=== PATIENT | female | born 2005 | race African-American/Black ===

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

== ENCOUNTER 2023-01-19 00:14 | Emergency (ER) | payer OTHER, SELFPAY ==
[2023-01-19 00:41] VITALS: BP 138/73; PULSE 70; RESP 15; TEMP 36.6; O2SAT 100
== END 2023-01-19 02:37 | disposition left against medical advice (07) ==
DX: Z53.21 Procedure and treatment not carried out due to patient leaving prior to being seen by health care provider (principal)
CPT/HCPCS: 99199

== ENCOUNTER 2024-12-14 10:01 | Emergency (ER) | payer OTHER, SELFPAY ==
--- NOTE | ~2024-12-14 | XR_ITS ---
Examination: XR chest 2V Clinical History: SOB congestion fatigue lack of sleep Comparison: 06/11/2022 Technique: PA and Lateral Findings: Cardiomediastinal silhouette normal size and configuration. Lungs clear. No acute bony abnormality. IMPRESSION: 1. No acute cardiopulmonary findings. Reviewed, dictated and finalized at location R.
[2024-12-14 10:08] VITALS: BP 143/94; PULSE 103; RESP 18; TEMP 36.2; O2SAT 99
--- OUTSIDE RECORDS SUMMARY | 2024-12-14 11:00 | XMS_ITS | Clinical Summary ---
Author Organization [facility] Address [address] [place] [address] Phone Care Team Providers Care Site Manager Name Role Phone Unavailable Primary Care Provider Unavailabl e Allergies Active Allergy Reactions Criticality Noted Date Comments Bee Sting Kit 01/13/2018 Medications No known medications Active Problems No known active problems Immunizations Name Administration Dates Next Due DTaP Vaccine(Daptacel)<7yo 10/31/2008,,01/29/2004,11/26,2003 HPV Vaccine 9-valent (Gardasil 9) 12/27/2020, Hep B Vaccine, Pediatric (Recombivax/Engerix-B Pediatric)tric) 04/30/2004,2003,2003 HepA Vaccine,Pediatric 2-Dose(Havrix/Vaqta) 10/31/2008,11/08/2006 Hib 12/03/2004,2003,2003 MMR Vaccine(Priorix/M-M-R II) 10/31/2008, 005 Meningococcal B 2-dose serie s Vaccine(Bexsero) 05/13/2020 Meningococcal Conjugate Vacc ine 4-valent(Menactra) 05/13/2020,01/13/2018 Polio IPV Vaccine (IPOL) 10/31/2008,11/20,2003,09/06 Tdap Vaccine(Adacel/Boostrix)=>7yo 07/18/2015 Varicella Vaccine(Varivax) 10/31/2008,12/03/2004 Family History Medical History Relation Comments Diabetes Father High blood pressure Mother Relation Status Comments Father Mother Social History Tobacco Use Types Packs/Day Years Used Date Smoking Tobacco: Never Smokeless Tobacco: Never Alcohol Use Standard Drinks/Week Comments Never 0 (1 standard drink = 0.6 oz pur e alcohol) AUDIT-C Answer Date Recorded Q1: How often do you have a drink containing alc ohol? Never 12/27/2020 Average Number of Drinks Not on file 021 Frequency of Binge Drinking Not on file 10/2020 Overall Financial Resource Strain (CARDIA) Answe r Date Recorded How hard is it for you to pa y for the very basics like food, housing, medical care, and heating? Not very hard 12/27/2020 Housing Stability Vital Sign Answer Liban e Recorded In the last 12 months, was t here a time when you were not able to pay the mortgage or rent on time? No 12/27/2020 In the last 12 months, how many places have you lived? 1 12/27/2020 In the last 12 months, was t here a time when you did not have a steady place to sleep or slept in a m[facility]p (including now)? No 12/27/2020 Intimate Partner Violence Answer Date R ecorded Feels Safe at Home Not on file 05/14/2021 Food Insecurity Answer Date Recorded Within the past 30 days, I w orried whether my food would run out before I got money to buy more. / En los ltimos 30 d as, me preocup que la comida se pod a acabar antes de tener dinero para comprar m s. Never true / Nunca 12/27/2020 Within the past 30 days, the food that I bought just didn't last, and I didn't have money to get more. / En los ltimos 30 d as, La comida que compr no rindi lo suficiente, y no ten a dinero para comprar m s. Never true / Nunca 12/27/2020 Comments Unknown Sex and Gender Information Value Date Recorded Sex Assigned at Not on file Legal Sex Female 9:22 AM CDT Gender Identity Female 11/16/2018 2:43 PM CDT Sexual Orientation Straight 11/16/2018 2: 43 PM CDT Last Filed Vital Signs Vital Sign Reading Time Taken Comments Blood Pressure 125/73 12/27/2020 9:46 AM CDT Pulse 70 12/27/2020 9:46 AM CDT Temperature 36.7 C (98 F) 05/13/2020 3:36 PM SENIOUR INSIGHT MANAGER Respiratory Rate 24 12/27/2020 9:46 AM CDT Oxygen Saturation 99% 12/27/2020 9:46 AM CDT Inhaled Oxygen Concentration - - Weight 122.5 kg (270 lb) 12/27/2020 9:46 AM CDT Height 169.9 cm (5' 6.89) 12/27/2020 9:46 AM CD T Body Mass Index 42.43 12/27/2020 9:46 AM CDT Plan of Treatment Health Maintenance Due Date Last Done Comments HPV Vaccine (3 - 3-dose series) 03/21/2021 12/27/2020, 05/13/2020 Chlamydia & Gonorrhea Screening: Complete with Pap 05/13/2021 05/13/2020, 01/13/2018 HIV Screening 05/13/2021 05/13/2020 Annual Preventive Visit 12/27/2021 12/27/2020, 05/13 Cervical Cancer Screening (3 year): 21yo-29yo 06/09/2024 COVID-19 Vaccine (2024- season) 2024 03/16/2021 Influenza Vaccine (#1) 2024 Tdap/DTaP/Td Vaccine (7 - Td or Tdap) 07/17/2025 07/18/2015, 10/31/2008, 12/03/2004, Additional history exists RSV 60+ and Currently (1 - 1-dose 75+ series) 06/09/2078 Meningococcal Vaccine Completed 05/13/2020, 018 Pneumococcal Immunization 0-5 & High-Risk Patients 6-49 Aged Out No longer eligible based on patient's age to complete this topic Procedures Procedure Name Priority Date/Time Associated Diagnosis Comments HIV 1/O/2 AG/AB W CASCADE RFLX Routine 05/13/2020 3:27 PM SENIOUR INSIGHT MANAGER Screening for HIV (human immunodeficiency virus) CT, NG, TRICH VAG BY VADIM Routine 05/13/2020 3:27 PM SENIOUR INSIGHT MANAGER Screen for sexually transmitted diseases from Last 3 Months or Most Recently Relevant to Health Maintenance Results * HIV 1/O/2 AG/AB W CASCADE RFLX (05/13/2020 3:27 PM SENIOUR INSIGHT MANAGER) HIV SCREEN 4TH GENERATION Non Reactive Non Reactive [facility] 2 Blood specimen (specimen) BLOOD SPECIMEN / Unknown 05/13/2020 3:27 PM SENIOUR INSIGHT MANAGER 05/12/2020 11:00 PM SENIOUR INSIGHT MANAGER Narrative [facility] - 05/15/2020 1:06 AM SENIOUR INSIGHT MANAGER Performed at: [facility] [id number] Fundraising Coordinator: Tim Baer PhD, Phone: [phone] Sylvain Rodrigues MD LAB BLOOD ORDERABLES Final Res ult Performing Organization Address [facility]/ZIP Co de Phone Number [facility] 2 * Chlamydia, GC, Trichomonas ([id number]) (05/13/2020 3:27 PM SENIOUR INSIGHT MANAGER) Chlamydia by VADIM Negative Negative [facility] 1 Gonococcus by VADIM Negative Negative [facility] 1 Trich vag by VADIM Negative Negative [facility] 1 Specimen of unknown material (specimen) 05/13/2020 3:27 PM SENIOUR INSIGHT MANAGER 05/12/2020 11:00 PM SENIOUR INSIGHT MANAGER Narrative [facility] - 05/15/2020 1:06 AM SENIOUR INSIGHT MANAGER Performed at: [facility] [id number] Fundraising Coordinator: Penelope Musa MD, Phone: [phone] Sylvain Rodrigues MD MICROBIOLOGY - GENERAL ORDERAB LES Final Result Performing Organization Address City/[facility]/ZIP Co de Phone Number [facility] 1 from Last 3 Months or Most Recently Relevant to Health Maintenance
--- OUTSIDE RECORDS SUMMARY | 2024-12-14 11:00 | XMS_ITS | Clinical Summary ---
Author Organization [facility] [address] Address [facility] [place] [address] Care Team Providers Care Insurance Biller Name Role Phone No, Physician Primary Care Provider [phone] Allergies Active Allergy Reactions Criticality Noted Date Comments Bee Sting Kit Unknown 01/13/2018 Medications norgestimate-eth inyl estradioL (ORTHO-CYCLEN) 0.25-35 mg-mcg per tablet Take 1 tablet by mouth daily Active Active Problems No known active problems Social History Tobacco Use Types Packs/Day Years Used Date Smoking Tobacco: Never Assessed Comments Unknown Sex and Gender Information Value Date Recorded Sex Assigned at Not on file Legal Sex Female 11:03 AM CDT Gender Identity Not on file Sexual Orientation Not on file Obstetrics History Last Filed Vital Signs Vital Sign Reading Time Taken Comments Blood Pressure 134/84 05/26/2024 9:11 AM TECH INTERN Pulse 71 05/26/2024 9:11 AM TECH INTERN Temperature 36.7 C (98 F) 05/11/2024 2:59 PM TECH INTERN Respiratory Rate 18 05/11/2024 2:59 PM TECH INTERN Oxygen Saturation 99% 05/11/2024 2:59 PM TECH INTERN Inhaled Oxygen Concentration - - Weight 130.6 kg (288 lb) 05/26/2024 9:11 AM TECH INTERN Height 172.7 cm (5' 8) 05/26/2024 9:11 AM TECH INTERN Body Mass Index 43.79 05/26/2024 9:11 AM TECH INTERN Plan of Treatment Health Maintenance Due Date Last Done Comments Cervical Cancer Screening 2003 Depression Screening 2003 Hepatitis C Screening 2003 Meningococcal B Vaccine (2 of 2 - Bexsero SCDM 2-dose series) 11/10/2020 05/13/2020 HPV Vaccines (3 - 3-dose series) 03/21/2021 12/27/2020, 05/13/2020 Regular Well Visit/Exam 18-64 06/09/2021 Covid-19 Vaccine (3 - 2024- season) 2024 04/06/2021, 03/16/2021 Influenza Vaccine (#1) 2024 DTaP/Tdap/Td Vaccine (7 - Td or Tdap) 07/17/2025 07/18/2015, 10/31/2008, 12/03/2004, Additional history exists Hepatitis B Screening Completed 04/30/2004 , 2003, 2003 Varicella Vaccines Completed 10/31/2008, 12/03/2004 Meningococcal Vaccine Completed 05/13/2020, 018 Pneumococcal vaccine <65 Aged Out No longer eligible based on patient's age to complete this topic Insurance [employer] [facility] Care Teams Insurance Biller Relationship Specialty Start Date End Date No, Physician PCP - General 05/18/24
--- NOTE | 2024-12-14 11:20 | ED_ITS ---
HPI - General Adult General Chief complaint: Upper Respiratory Infection Stated complaint: UPPER RESP Time Seen by Provider: 12/14/24 10:55 History of Present Illness HPI narrative: 19-year-old female presents to the emergency department for evaluation for sore throat cough congestion is been ongoing for the past 2 days. Patient reports she did have similar symptoms a few years ago. At that time patient was diagnosed with a viral pharyngitis. Patient denies any sick contacts Related Data Allergies Allergy/AdvReac Type Severity Reaction Status Date / Time No Known Allergies Allergy Verified 12/14/24 10:01 Review of Systems Review of Systems: All systems reviewed & are unremarkable except as noted in HPI and below Exam Narrative: APPEARANCE: Uncomfortable appearing HEAD: normocephalic, atraumatic. EYES: PERRLA/EOMI, conjunctivae clear. NOSE: Nasal congestion EARS:TMS clear with good light reflex. THROAT: Pharynx clear, no exudate. NECK: Supple. No adenopathy, no masses. RESPIRATORY: Airway patent, respirations nonlabored. Clear to auscultation bilaterally, no rales, rhonchi, wheezing. CARDIOVASCULAR: Regular rate and rhythm without murmurs rubs or gallops. ABDOMINAL: Soft, nontender, nondistended, normal bowel sounds MUSCULOSKELETAL: Moves all extremities. Strength/ROM intact, No edema, No calf tenderness. NEURO: Alert. Cranial nerves II through XII intact. Good gait. Good coordination SKIN: Warm, dry. Normal Color Course Vital Signs Vital signs: Vital Signs Temperature 97.1 F L 12/14/24 10:08 Pulse Rate 103 H 12/14/24 10:08 Respiratory Rate 18 12/14/24 10:08 Blood Pressure 143/94 H 12/14/24 10:08 Pulse Oximetry 99 12/14/24 10:08 Oxygen Delivery Room Air 12/14/24 10:08 Temperature 98.8 F 12/14/24 12:35 Pulse Rate 93 12/14/24 12:35 Respiratory Rate 18 12/14/24 12:35 Blood Pressure 136/84 12/14/24 12:35 Pulse Oximetry 99 12/14/24 12:35 Oxygen Delivery Room Air 12/14/24 10:08 Medical Decision Making [facility] Narrative Medical decision making narrative: 19-year-old female presents emergency department for evaluation for sore throat. Patient was negative for influenza RSV and for COVID. Strep was negative. Your test was negative. Chest x-ray shows no acute cardiopulmonary abnormality. Patient's symptoms are consistent with a viral syndrome. Patient was advised to do symptomatic treatment. All questions concerns were addressed. Differential Diagnosis Differential Diagnosis: Pneumonia, COVID, RSV , influenza, strep throat, viral syndrome Vital Signs Vital Signs: Vital Signs Temperature 97.1 F L 12/14/24 10:08 Pulse Rate 103 H 12/14/24 10:08 Respiratory Rate 18 12/14/24 10:08 Blood Pressure 143/94 H 12/14/24 10:08 Pulse Oximetry 99 12/14/24 10:08 Oxygen Delivery Room Air 12/14/24 10:08 Temperature 98.8 F 12/14/24 12:35 Pulse Rate 93 12/14/24 12:35 Respiratory Rate 18 12/14/24 12:35 Blood Pressure 136/84 12/14/24 12:35 Pulse Oximetry 99 12/14/24 12:35 Oxygen Delivery Room Air 12/14/24 10:08 Lab Data Lab results reviewed: Yes I reviewed the patient's lab results. Labs: Lab Results 12/14/24 12/14/24 Range/Units 11:12 11:40 POC Urine HCG, Qual Negative (Negative) Influenza A (RT-PCR) Negative (Negative) Influenza B (RT-PCR) Negative (Negative) RSV (RT-PCR) Negative (Negative) SARS-CoV-2 RNA (RT-PCR) Negative (Negative) Group A Strep (PCR) Not detected (Negative) Imaging Data My impression: X-ray: No acute cardiopulmonary abnormality Radiologist's impression: Impressions Chest X-Ray 12/14/24 11:33 IMPRESSION: 1. No acute cardiopulmonary findings. Discharge Plan Discharge Clinical Impression: Acute sore throat, Acute viral syndrome Patient Disposition: Home Condition: Stable Instructions: Antibiotic Form, Viral Syndrome (ED) Additional Instructions: Tylenol and ibuprofen for pain control. Drink plenty of fluids. Have close follow-up with your primary care physician. If you have any worsening symptoms then please call or return to the emergency department. Patient Language: Moroccan Prescriptions: No Action methylprednisolone [Medrol (Joaquin)] 4 mg tablets,dose pack See Rx Instructions .ROUTE .COMPLEX Qty: 21 0RF Rx Instructions: orally per package directions Follow-up/Referrals: UNKNOWN,DOCTOR [Primary Care Provider] Stand Alone Forms: Work/School Release IP
[2024-12-14] MEDS: IBUPROFEN 600 MG TABLET PO (11:38)
[2024-12-14] MEDS: ACETAMINOPHEN 500 MG TABLET 1000 MG PO (11:38)
[2024-12-14 11:41] LABS: BEDSIDEPREGUCG Negative (Negative)
[2024-12-14 12:08] LABS: Strep Group A RT-PCR NOT DETECTED (Negative)
[2024-12-14 12:17] LABS: Influenza A QL RT-PCR Negative (Negative); Influenza B QL RT-PCR Negative (Negative); RSV RNA, RT-PCR Negative (Negative); SARS-CoV-2 RNA PCR Negative (Negative)
[2024-12-14 12:35] VITALS: BP 136/84; PULSE 93; RESP 18; TEMP 37.1; O2SAT 99
== END 2024-12-14 12:59 | disposition home or self-care (01) ==
PROVIDERS: Emergency Provider Emergency Medicine
DX: J02.9 Acute pharyngitis, unspecified (principal); B34.9 Viral infection, unspecified; Z20.822 Contact with and (suspected) exposure to COVID-19
CPT/HCPCS: 71046; 81025; 87637; 87651; 99283; A9270